=== PATIENT | male | born 1955 | race Caucasian/White ===

== ENCOUNTER 2016-09-20 11:02 | Observation (INO) | payer BC ==
[2016-09-20] MEDS ORDERED: Aspirin Low Dose CHEW TAB* 81 MG PO ONE (11:38)
[2016-09-20 12:37] LABS: Hematocrit 48 % (42-52); Hemoglobin 16.6 g/dl (14.0-18.0); Mean Corpuscular HGB Conc 35 g/dl (31-36); Mean Corpuscular Hemoglobin 32 pg (27-31); Mean Corpuscular Volume 91 fL (80-94); Mean Platelet Volume 8 um3 (7.4-10.4); Red Blood Count 5.27 10^6/ul (4.0-5.4); Red Cell Distribution Width 14 % (10.5-15); White Blood Count 7.6 10^3/ul (3.5-10.8)
--- NOTE | 2016-09-20 12:50 | RAD ---
INDICATION: Chest pain. COMPARISON: Comparison is made with a prior study from September 15, 2014. TECHNIQUE: A portable view of the chest was obtained. FINDINGS: Cardiac and mediastinal contours appear to be within normal limits. The lungs are clear. No pleural effusion is seen. IMPRESSION: NO EVIDENCE FOR ACUTE DISEASE.
[2016-09-20 12:55] LABS: ALT 24 U/L (7-52); Albumin 4.1 g/dL (3.2-5.2); Alkaline Phosphatase 84 U/L (34-104); BUN/Creatinine Ratio 16.7 (8-20); Blood Urea Nitrogen 15 mg/dL (6-24); CO2 Carbon Dioxide 24 mmol/L (22-32); Calcium 9.4 mg/dL (8.6-10.3); Chloride 104 mmol/L (101-111); EGFR African American 111.5 (>60); EGFR Non-African American 86.7 (>60); Globulin 3.7 g/dL (2-4); Glucose 93 mg/dL (70-100); Sodium 133 mmol/L (133-145); Total Protein 7.8 g/dL (6.4-8.9)
[2016-09-20] MEDS ORDERED: Calcium Carbonate CHEW TAB* 500 MG (TUMS) PO PRN (14:54)
--- NOTE | 2016-09-20 18:37 | ED ---
Favian Joy Matthew, scribed for Partha Anthony MD on 09/20/16 at 1200 . HPI Chest Pain - HPI Summary HPI Summary: A 60 y/o male presents with intermittent left sided chest pain since 09/17/16. The patient was walking up a hill on 09/17/16 while sledding with his grand kids when the felt a "twinge" in his chest. The pain comes and goes and he currently described a soreness medial to his left nipple. At that time, the patient had SOB. The pain is unaffected by movement or breathing. He last felt the pain last night while lying on his side in bed. PMHx includes HTN, NO HLD. The patient does not smoke. He had a stress test 6-7 years ago. He takes an aspirin daily. - History of Current Complaint Chief Complaint: EDChestWallPain Time Seen by Provider: 09/20/16 11:38 Hx Obtained From: Patient Onset/Duration: Started Days Ago, Atraumatic, Still Present Timing: Intermittent Initial Severity: Moderate Current Severity: Mild Chest Pain Location: Left Lateral Chest Pain Radiates: No Aggravating Factor(s): Nothing Alleviating Factor(s): Nothing Associated Signs and Symptoms: Positive: Chest Pain, Shortness of Breath - since resolved - Allergy/Home Medications Allergies/Adverse Reactions: Allergies Allergy/AdvReac Type Severity Reaction Status Date / Time No Known Allergies Allergy Verified 05/13/16 07:56 PMH/Surg Hx/FS Hx/Imm Hx Endocrine/Hematology History: Denies: Hx Anticoagulant Therapy, Hx Diabetes, Hx Thyroid Disease Cardiovascular History: Reports: Hx Hypertension - W/MEDS Denies: Hx Congestive Heart Failure, Hx Deep Vein Thrombosis, Hx Myocardial Infarction, Hx Pacemaker/ICD Respiratory History: Denies: Hx Asthma, Hx Chronic Obstructive Pulmonary Disease (COPD), Hx Lung Cancer, Hx Pneumonia, Hx Pulmonary Embolism GI History: Denies: Hx Gall Bladder Disease, Hx Gastrointestinal Bleed, Hx Ulcer, Hx Urosepsis History: Denies: Hx Dialysis, Hx Kidney Stones, Hx Renal Disease Sensory History: Denies: Hx Hearing Aid Neurological History: Denies: Hx Dementia, Hx Migraine, Hx Seizures, Hx Transient Ischemic Attacks (TIA) Psychiatric History: Denies: Hx Anxiety, Hx Depression, Hx Panic Disorder, Hx Schizophrenia, Hx Bipolar Disorder - Surgical History Surgery Procedure, Year, and Place: GALLBLADDER-1999; HERNIA Xs 2 & Infectious Disease History: No Infectious Disease History: Denies: Hx Clostridium Difficile, Hx Hepatitis, Hx Human Immunodeficiency Virus (HIV), Hx of Known/Suspected MRSA, Hx Shingles, Hx Tuberculosis, Hx Known/ Suspected VRE, Hx Known/Suspected VRSA, Traveled Outside the [place] in Last 30 Days - Family History Known Family History: Positive: Cardiac Disease Negative: Hypertension - Social History Alcohol Use: Occasionally Substance Use Type: Reports: None Smoking Status (MU): Never Smoked Tobacco Review of Systems Constitutional: Negative Negative: Fever, Chills Eyes: Negative Negative: Erythema ENT: Negative Negative: Sore Throat Positive: Chest Pain - intermittent - soreness medial to the left nipple currently Positive: Shortness Of Breath - since resolved Gastrointestinal: Negative Negative: Abdominal Pain, Vomiting, Nausea Genitourinary: Negative Negative: dysuria, hematuria Musculoskeletal: Negative Negative: Myalgia, Edema Skin: Negative Negative: Rash Neurological: Negative Psychological: Normal All Other Systems Reviewed And Are Negative: Yes Physical Exam Triage Information Reviewed: Yes Vital Signs On Initial Exam: Initial Vitals Temp Pulse Resp BP Pulse Ox 98.2 F 76 18 158/90 98 09/20/16 11:04 09/20/16 11:04 09/20/16 11:04 09/20/16 11:04 09/20/16 11:04 Vital Signs Reviewed: Yes Appearance: Positive: Well-Appearing, No Pain Distress Skin: Positive: Warm, Dry Head/Face: Positive: Other - Normocephalic; Atraumatic Eyes: Positive: Conjunctiva Clear Neck: Positive: No Lymphadenopathy Respiratory/Lung Sounds: Positive: Breath Sounds Present, Other - Normal Effort. Negative: Rales, Rhonchi, Stridor, Tracheal Deviation, Wheezes Cardiovascular: Positive: RRR, Pulses are Symmetrical in both Upper and Lower Extremities Abdomen Description: Positive: Nontender, Soft, Other: - No Rebound. Negative: Distended, Guarding Bowel Sounds: Positive: Present Musculoskeletal: Positive: Other - The patient reports a mild soreness medial to his left nipple. Negative: Edema Left, Edema Right Neurological: Positive: Alert, Oriented to Person Place, Time Psychiatric: Positive: Affect/Mood Appropriate Diagnostics - Vital Signs Vital Signs Temp Pulse Resp BP Pulse Ox 09/20/16 11:04 98.2 F 76 18 158/90 98 - Laboratory Lab Results: Lab Results 09/20/16 09/20/16 09/20/16 Range/Units 12:10 12:10 12:10 WBC 7.6 (3.5-10.8) 10^3/ul RBC 5.27 (4.0-5.4) 10^6/ul Hgb 16.6 (14.0-18.0) g/dl Hct 48 (42-52) % MCV 91 (80-94) fL MCH 32 H (27-31) pg MCHC 35 (31-36) g/dl RDW 14 (10.5-15) % Plt Count 191 (150-450) 10^3/ul MPV 8 (7.4-10.4) um3 Neut % (Auto) 56.7 (38-83) % Lymph % (Auto) 30.4 (25-47) % [place] % (Auto) 8.8 (1-9) % Eos % (Auto) 2.9 (0-6) % Baso % (Auto) 1.2 (0-2) % Absolute Neuts (auto) 4.3 (1.5-7.7) 10^3/ul Absolute Lymphs (auto) 2.3 (1.0-4.8) 10^3/ul Absolute Monos (auto) 0.7 (0-0.8) 10^3/ul Absolute Eos (auto) 0.2 (0-0.6) 10^3/ul Absolute Basos (auto) 0.1 (0-0.2) 10^3/ul Absolute Nucleated RBC 0.01 10^3/ul Nucleated RBC % 0.1 Sodium 133 (133-145) mmol/L Potassium TNP Chloride 104 (101-111) mmol/L Carbon Dioxide 24 (22-32) mmol/L Anion Gap TNP BUN 15 (6-24) mg/dL Creatinine 0.90 (0.67-1.17) mg/dL Est GFR ( Amer) 111.5 (>60) Est GFR (Non-Af Amer) 86.7 (>60) BUN/Creatinine Ratio 16.7 (8-20) Glucose 93 (70-100) mg/dL Lactic Acid 0.8 (0.5-2.0) mmol/L Calcium 9.4 (8.6-10.3) mg/dL Total Bilirubin 0.80 (0.2-1.0) mg/dL AST TNP ALT 24 (7-52) U/L Alkaline Phosphatase 84 (34-104) U/L Troponin I 0.00 (<0.04) ng/mL Total Protein 7.8 (6.4-8.9) g/dL Albumin 4.1 (3.2-5.2) g/dL Globulin 3.7 (2-4) g/dL Albumin/Globulin Ratio 1.1 (1-3) 09/20/16 Range/Units 13:15 WBC (3.5-10.8) 10^3/ul RBC (4.0-5.4) 10^6/ul Hgb (14.0-18.0) g/dl Hct (42-52) % MCV (80-94) fL MCH (27-31) pg MCHC (31-36) g/dl RDW (10.5-15) % Plt Count (150-450) 10^3/ul MPV (7.4-10.4) um3 Neut % (Auto) (38-83) % Lymph % (Auto) (25-47) % [place] % (Auto) (1-9) % Eos % (Auto) (0-6) % Baso % (Auto) (0-2) % Absolute Neuts (auto) (1.5-7.7) 10^3/ul Absolute Lymphs (auto) (1.0-4.8) 10^3/ul Absolute Monos (auto) (0-0.8) 10^3/ul Absolute Eos (auto) (0-0.6) 10^3/ul Absolute Basos (auto) (0-0.2) 10^3/ul Absolute Nucleated RBC 10^3/ul Nucleated RBC % Sodium (133-145) mmol/L Potassium 4.3 Chloride (101-111) mmol/L Carbon Dioxide (22-32) mmol/L Anion Gap BUN (6-24) mg/dL Creatinine (0.67-1.17) mg/dL Est GFR ( Amer) (>60) Est GFR (Non-Af Amer) (>60) BUN/Creatinine Ratio (8-20) Glucose (70-100) mg/dL Lactic Acid (0.5-2.0) mmol/L Calcium (8.6-10.3) mg/dL Total Bilirubin (0.2-1.0) mg/dL AST 17 ALT (7-52) U/L Alkaline Phosphatase (34-104) U/L Troponin I (<0.04) ng/mL Total Protein (6.4-8.9) g/dL Albumin (3.2-5.2) g/dL Globulin (2-4) g/dL Albumin/Globulin Ratio (1-3) Result Diagrams: 09/20/16 12:10 09/20/16 13:15 Lab Statement: Any lab studies that have been ordered have been reviewed, and results considered in the medical decision making process. - Radiology CXR Xray Interpretation: No Acute Changes - IMPRESSION: NO EVIDENCE FOR ACUTE DISEASE. Radiology Interpretation Completed By: Radiologist - EKG 11:11 Cardiac Rate: NL - 69 bpm EKG Rhythm: Sinus Rhythm EKG Interpretation: No STEMI Chest Pain Course/Dx - Diagnoses Provider Diagnoses: Chest pain, unspecified - Provider Notifications Discussed Care Of Patient With: Dr. Peterson (Hospitalist) -- Notified of patient' s history and will admit the patient into her services. Discharge - Discharge Plan Condition: Stable Disposition: ADMITTED TO [facility] documentation as recorded by the Favian matute Matthew accurately reflects the service I personally performed and the decisions made by , Partha Anthony MD.
[2016-09-20] MEDS ORDERED: Heparin VIAL(*) 5000 UNITS/ML VIAL (FIVE THOUSAND) SUBCUT SCH (21:00)
--- NOTE | 2016-09-20 22:22 | HP ---
HISTORY AND PHYSICAL: DATE OF ADMISSION: 09/20/16 PRIMARY CARE PROVIDER: Dr. Parry. CHIEF COMPLAINT: Chest pain. HISTORY OF PRESENT ILLNESS: Mr. Curtis is a 60-year-old male with a history of hypertension, obesity, who presents to the emergency room with complaints of chest pain. The patient states that he was sled riding with his grandchild this past Monday when he began to have chest pain. The patient states that he and his grandchild slid down the hill and while walking back up with his grandchild on his shoulders, he began to feel left-sided chest discomfort. He states that it was not too bad at that point. He then rode down the hill by himself, and went further down the hill. This was a longer walk back up the hill to get to the top and with this, he had more chest discomfort. The patient has continued to have intermittent chest discomfort over the last few days. He describes this as being a single point in the left side of his chest. He can almost pinpoint with his thumb. The patient states that the discomfort is achy in nature. He states that it comes and goes. He is unable to tell me how long the pain lasts for when it is present. He states that it is variable in duration. He states nothing improves or makes the pain worse. He has had no associated shortness of breath, nausea, or sweats with this discomfort outside when he was walking up the hill, he developed shortness of breath at that point. He has never had anything like this in the past. The patient states that he had a stress test with Dr. Abrams somewhere between 5 to 7 years ago, when he was being worked up for prolonged QT as his daughter was having issues at that time. PAST MEDICAL HISTORY: 1. Hypertension. 2. History of diverticulitis. PAST SURGICAL HISTORY: 1. Cholecystectomy. 2. Bilateral inguinal hernia repairs. MEDICATIONS: 1. Aspirin 81 mg p.o. daily. 2. Losartan 50 mg p.o. daily. 3. Tums 1000 mg p.o. q.4 hours p.r.n. indigestion. ALLERGIES: No known drug allergies. FAMILY HISTORY: Mom is living, she is 83, she has a history of rheumatic fever and heart valve issues related to that. Dad is at age of 84, he had what sounds to be cancer and peripheral arterial disease. SOCIAL HISTORY: The patient is a lifelong nonsmoker. He drinks a couple of beers per week. 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 He is . His , Pamela, is his healthcare proxy. He has 2 children. REVIEW OF SYSTEMS: No fevers, chills, or anorexia. He admits to chest pain as above. No palpitations, no edema, no cough, no shortness of breath. No nausea , vomiting, abdominal pain, constipation, diarrhea, or hematochezia. No hematuria, no dysuria, no focal weakness or sensory loss. No sudden changes in vision. No dysphagia. No joint pains or muscle pains out of the ordinary. No rashes. No anxiety or depression. PHYSICAL EXAMINATION GENERAL: The patient is a well-developed, obese, middle-aged male, sitting in the stretcher, in no acute distress. VITAL SIGNS: Blood pressure 122/83, pulse 75, respirations 22, temp 98.2, and O2 sat is 91% on room air. HEENT: Pupils are equal, they are round, they react to light. Extraocular muscles are intact. Oropharynx is clear. Oral mucosa is moist. There is no submandibular, cervical, or supraclavicular adenopathy. Thyroid is not enlarged. No thyroid nodules are noted. PULMONARY: Lungs are clear to auscultation bilaterally. CARDIAC: Normal S1, S2. Regular rate and rhythm. I do not appreciate any murmurs. There is no lower extremity edema. ABDOMEN: Bowel sounds are present. Abdomen is soft, nontender, and nondistended. MUSCULOSKELETAL: There is no cyanosis or clubbing of the digits. There is full active range of motion of all 4 extremities. NEURO: Cranial nerves II through XII are grossly intact. Sensation is intact to light touch throughout. Strength is 5/5 and symmetric, both upper and lower extremities bilaterally. PSYCH: The patient is alert. He is oriented x3. Affect appears appropriate. SKIN: Warm and dry. There are no rashes. DIAGNOSTIC STUDIES/LAB DATA: Sodium 133, potassium 4.3, chloride 104, CO2 24, BUN 15, creatinine 0.91, glucose 93, lactic acid 0.8, calcium 9.4. Bilirubin 0.8, AST 17, ALT 24, alk phos 84. Troponin 0. Albumin 4.1. WBC 7.6, hemoglobin 16.6, hematocrit 48, platelets 191. EKG revealed normal sinus rhythm without any acute ST-T wave abnormalities. This is unchanged from 2015. Chest x-ray: No evidence for acute disease. ASSESSMENT AND PLAN: Mr. Curtis is a 60-year-old male with a history of hypertension and obesity, who presents to the emergency room with complaints of chest pain that developed initially while walking up hill while sled riding with his family and has persisted over the last 3 days. 1. Chest pain. The patient's story is concerning for the onset of the chest discomfort; however, the fact that this appears pinpoint seems somewhat atypical for cardiac pain. Given the patient's onset of the pain as well as history of obesity, hypertension, and age, we will go ahead and admit the patient to rule out myocardial infarction with serial troponins and EKGs. I doubt that the patient is actively having an acute myocardial infarction. He will undergo an exercise nuclear stress test tomorrow. If negative, the patient will be discharged home. If positive, Cardiology evaluation will be requested. The patient will be maintained on his usual dose of baby aspirin. 2. Hypertension. The patient's blood pressure is under good control. He will be maintained on his usual dose of losartan. 3. DVT prophylaxis. According to the Adult Thrombosis Prophylaxis Risk Factor Assessment Guide, the patient has a total risk factor score of 2 making him moderate risk. He will be placed on heparin 5000 units subcutaneous q.12 hours. 4. Code status is full and again, the patient indicates that his is his healthcare proxy. TIME SPENT: Sixty-five minutes was spent admitting this patient, of which greater than half was spent [id number] with the patient and his convincing him to stay in the hospital for evaluation and performing a physical exam. CC: Dr. Parry* [id number]/[facility] #: [id number] LEANDRO
[2016-09-21] MEDS ORDERED: Aspirin EC Low Dose* 81 MG TAB.EC PO SCH (09:00)
[2016-09-21] MEDS ORDERED: Losartan TAB* 25 MG PO SCH (09:00)
--- NOTE | 2016-09-21 12:19 | RAD ---
Edited for charges. INDICATION: Chest pain, hypertension, obesity. COMPARISON: No relevant prior exams available on the [facility] PACS. TECHNIQUE: 10.670 mCi of Tc-99m Myoview were administered IV. SPECT images of the heart were obtained. Later on the same day, under the direction of Dr. Briones, an exercise stress test was performed. The patient achieved a peak heart rate of 141 bpm, 87 % of the age- predicted maximum. Subsequently, the patient was given an IV injection of 25.710 mCi Tc- 99m Myoview. SPECT images of the heart were obtained and a gated wall motion study was performed. FINDINGS: Gated wall motion images were obtained at stress and demonstrate wall motion to be within normal limits. Calculated left ventricular ejection fraction is 67 % at stress. Estimated LEFT ventricular end diastolic volume is 112 mL. TID 0.91. Diaphragmatic attenuation noted on the nonattenuation corrected series. Fixed thinning at the apex noted. No stress-induced reversible perfusion defect evident to indicate ischemia. IMPRESSION: 1. No evidence for stress-induced ischemia. 2. Nonspecific fixed thinning/decreased radiopharmaceutical accumulation at the cardiac apex. A small infarct is not excluded. 3. Normal LEFT ventricular wall motion and estimated ejection fraction. ASSESSMENT: Low risk. Based on imaging criteria from ACC/AHA 2002 Guideline Update for the Management of Patients With Chronic Stable Angina Table 23. Noninvasive Risk Stratification. MTDD
--- NOTE | 2016-09-21 13:26 | PN ---
Subjective Date of Service: 09/21/16 Interval History: Pt is feeling well. He is still getting sharp twinges of pain from time to time. He is anxious to go home. Objective Active Medications: Aspirin (Aspirin Ec Low Dose*) 81 mg PO DAILY [facility] Calcium Carbonate (Tums*) 1,000 mg PO Q6H PRN PRN Reason: INDIGESTION Heparin Sodium (Porcine) (Heparin Vial(*)) 5,000 units SUBCUT Q12HR [facility] Last Admin: 09/20/16 21:43 Dose: 5,000 units Losartan Potassium (Cozaar Tab*) 50 mg PO DAILY [facility] Vital Signs 09/20/16 09/20/16 09/20/16 14:00 14:30 15:00 Temperature Pulse Rate 76 71 71 Respiratory 19 14 17 Rate Blood Pressure 140/98 138/86 142/83 (mmHg) O2 Sat by Pulse 93 97 95 Oximetry 09/20/16 09/20/16 09/21/16 16:13 20:46 00:40 Temperature 97.8 F 98.1 F 98.1 F Pulse Rate 66 72 65 Respiratory 18 20 16 Rate Blood Pressure 149/93 140/86 117/69 (mmHg) O2 Sat by Pulse 97 91 93 Oximetry 09/21/16 09/21/16 04:41 07:31 Temperature 98.3 F Pulse Rate 69 Respiratory 16 16 Rate Blood Pressure 120/70 (mmHg) O2 Sat by Pulse 92 Oximetry Oxygen Devices in Use Now: None Appearance: Middle aged male standing in the room, NAD Eyes: No Scleral Icterus Ears/Nose/Mouth/Throat: Mucous Membranes Moist Respiratory: Symmetrical Chest Expansion and Respiratory Effort, Clear to Auscultation Cardiovascular: NL Sounds; No Murmurs; No JVD, RRR, No Edema Abdominal: NL Sounds; No Tenderness; No Distention Extremities: No Clubbing, Cyanosis Skin: No Rash or Ulcers, No Nodules or Sclerosis Neurological: Alert and Oriented x 3 Result Diagrams: 09/20/16 12:10 09/20/16 13:15 Additional Lab and Data: Lab Results 09/20/16 09/20/16 09/20/16 Range/Units 12:10 12:10 12:10 WBC 7.6 (3.5-10.8) 10^3/ul RBC 5.27 (4.0-5.4) 10^6/ul Hgb 16.6 (14.0-18.0) g/dl Hct 48 (42-52) % MCV 91 (80-94) fL MCH 32 H (27-31) pg MCHC 35 (31-36) g/dl RDW 14 (10.5-15) % Plt Count 191 (150-450) 10^3/ul MPV 8 (7.4-10.4) um3 Neut % (Auto) 56.7 (38-83) % Lymph % (Auto) 30.4 (25-47) % [place] % (Auto) 8.8 (1-9) % Eos % (Auto) 2.9 (0-6) % Baso % (Auto) 1.2 (0-2) % Absolute Neuts (auto) 4.3 (1.5-7.7) 10^3/ul Absolute Lymphs (auto) 2.3 (1.0-4.8) 10^3/ul Absolute Monos (auto) 0.7 (0-0.8) 10^3/ul Absolute Eos (auto) 0.2 (0-0.6) 10^3/ul Absolute Basos (auto) 0.1 (0-0.2) 10^3/ul Absolute Nucleated RBC 0.01 10^3/ul Nucleated RBC % 0.1 Sodium 133 (133-145) mmol/L Potassium TNP Chloride 104 (101-111) mmol/L Carbon Dioxide 24 (22-32) mmol/L Anion Gap TNP BUN 15 (6-24) mg/dL Creatinine 0.90 (0.67-1.17) mg/dL Est GFR ( Amer) 111.5 (>60) Est GFR (Non-Af Amer) 86.7 (>60) BUN/Creatinine Ratio 16.7 (8-20) Glucose 93 (70-100) mg/dL Lactic Acid 0.8 (0.5-2.0) mmol/L Calcium 9.4 (8.6-10.3) mg/dL Total Bilirubin 0.80 (0.2-1.0) mg/dL AST TNP ALT 24 (7-52) U/L Alkaline Phosphatase 84 (34-104) U/L Troponin I 0.00 (<0.04) ng/mL Total Protein 7.8 (6.4-8.9) g/dL Albumin 4.1 (3.2-5.2) g/dL Globulin 3.7 (2-4) g/dL Albumin/Globulin Ratio 1.1 (1-3) 09/20/16 Range/Units 13:15 WBC (3.5-10.8) 10^3/ul RBC (4.0-5.4) 10^6/ul Hgb (14.0-18.0) g/dl Hct (42-52) % MCV (80-94) fL MCH (27-31) pg MCHC (31-36) g/dl RDW (10.5-15) % Plt Count (150-450) 10^3/ul MPV (7.4-10.4) um3 Neut % (Auto) (38-83) % Lymph % (Auto) (25-47) % [place] % (Auto) (1-9) % Eos % (Auto) (0-6) % Baso % (Auto) (0-2) % Absolute Neuts (auto) (1.5-7.7) 10^3/ul Absolute Lymphs (auto) (1.0-4.8) 10^3/ul Absolute Monos (auto) (0-0.8) 10^3/ul Absolute Eos (auto) (0-0.6) 10^3/ul Absolute Basos (auto) (0-0.2) 10^3/ul Absolute Nucleated RBC 10^3/ul Nucleated RBC % Sodium (133-145) mmol/L Potassium 4.3 Chloride (101-111) mmol/L Carbon Dioxide (22-32) mmol/L Anion Gap BUN (6-24) mg/dL Creatinine (0.67-1.17) mg/dL Est GFR ( Amer) (>60) Est GFR (Non-Af Amer) (>60) BUN/Creatinine Ratio (8-20) Glucose (70-100) mg/dL Lactic Acid (0.5-2.0) mmol/L Calcium (8.6-10.3) mg/dL Total Bilirubin (0.2-1.0) mg/dL AST 17 ALT (7-52) U/L Alkaline Phosphatase (34-104) U/L Troponin I (<0.04) ng/mL Total Protein (6.4-8.9) g/dL Albumin (3.2-5.2) g/dL Globulin (2-4) g/dL Albumin/Globulin Ratio (1-3) Assess/Plan/Problems-Billing Mr Saunders is a 60 yo M who has a h/o HTN and obesity who presented to the ER with c/o chest pain that developed while walking up a hill to sled ride. - Patient Problems (1) Chest pain Current Visit: Yes Status: Acute Code(s): R07.9 - CHEST PAIN, UNSPECIFIED SNOMED Code(s): 86716287 Comment: The patient was ruled out for ID and his stress test was negative for ischemia. He will continue on his usual home medication regimen. Follow up with Dr. Abrams as needed. (2) HTN (hypertension) Current Visit: Yes Status: Acute Code(s): I10 - ESSENTIAL (PRIMARY) HYPERTENSION SNOMED Code(s): 07115978 Comment: BP is under good control. Continue losartan 50mg daily. (3) DVT prophylaxis Current Visit: Yes Status: Acute Code(s): ACA2342 - SNOMED Code(s): 431424650 Comment: SQ heparin (4) Full code status Current Visit: Yes Status: Acute Code(s): Z78.9 - OTHER SPECIFIED HEALTH STATUS SNOMED Code(s): 418765773
[2016-09-21 14:15] VITALS: BP 124/83
--- NOTE | 2016-09-22 05:12 | DS ---
DISCHARGE SUMMARY: DATE OF ADMISSION: 09/20/16 DATE OF DISCHARGE: 09/21/16 PRIMARY CARE PROVIDER: Bradford Parry MD PRINCIPAL DIAGNOSIS: Noncardiac chest pain. SECONDARY DIAGNOSIS: Hypertension. DISCHARGE MEDICATIONS: 1. Aspirin 81 mg p.o. daily. 2. Losartan 50 mg p.o. daily. 3. Tums 1000 mg p.o. q.4 hours p.r.n. indigestion. HOSPITAL COURSE: Mr. Curtis is a 60-year-old male who developed chest pain while walking up a hill after riding down it on a sled with his grandchild. The patient noticed some mild chest discomfort the first time up the hill, but more the second time he walked up the hill. He has had off and on chest discomfort since that time. The onset of chest pain was this past Monday. However, while the patient's story is concerning, he describes the pain is to being pinpoint. Given the patient's history of obesity, age, and hypertension; the decision was made to admit him and rule out an acute coronary syndrome. The patient had 3 negative troponins and an EKG without any acute ST-T wave abnormalities. The patient underwent an exercise nuclear stress test on the day of discharge that did not reveal any evidence of infarct or ischemia. At this point, it was felt the patient is stable for discharge home. The patient has been instructed to continue his usual home medication regimen. He will follow up with Dr. Parry in the next 1 to 2 weeks. Activity level is as tolerated. The patient has been instructed to return to the emergency room if he has any concerning chest pain or any other concerning symptoms. FOLLOWUP CONCERNS: The patient is being discharged home today, 09/21/16. The patient is to follow up with Dr. Parry on 09/28/16 at 9:15 a.m. ACTIVITY LEVEL: As tolerated. DIET: Low fat. CONDITION ON DISCHARGE: Stable. TIME SPENT: Twenty-five minutes was spent discharging this patient. CC: Dr. Parry* [id number]/[facility] #: [id number] MTDD
== END 2016-09-21 14:30 | disposition home or self-care (01) ==
LOC: ED 11:02 → MEDTELE 13:43
PROVIDERS: ADMIT Hospitalist; ATTEND Hospitalist
DX: R07.89 Other chest pain (principal); I10 Essential (primary) hypertension; E66.9 Obesity, unspecified; R06.02 Shortness of breath; Z79.82 Long term (current) use of aspirin; Z79.899 Other long term (current) drug therapy
CPT/HCPCS: 36415; 71010; 78452; 80053; 83605; 84484; 85025; 93005; 93017; 96372; 99284; A9270-GY; A9502; G0378; J1644

== ENCOUNTER 2017-01-22 07:56 | Emergency (ER) | payer BC ==
[2017-01-22] MEDS ORDERED: Ondansetron INJ* 2 MG/ML VIAL IV ONE (08:42)
[2017-01-22 10:04] LABS: Hematocrit 49 % (42-52); Hemoglobin 16.4 g/dl (14.0-18.0); Mean Corpuscular HGB Conc 34 g/dl (31-36); Mean Corpuscular Hemoglobin 32 pg (27-31); Mean Corpuscular Volume 95 fL (80-94); Mean Platelet Volume 8 um3 (7.4-10.4); Red Blood Count 5.12 10^6/ul (4.0-5.4); Red Cell Distribution Width 13 % (10.5-15); White Blood Count 7.5 10^3/ul (3.5-10.8)
[2017-01-22 10:22] LABS: Albumin 4.2 g/dL (3.2-5.2); C Reactive Protein 2.85 mg/L (< 5.00); Calcium 9.4 mg/dL (8.6-10.3); EGFR African American 109.7 (>60); EGFR Non-African American 85.3 (>60); Globulin 3.1 g/dL (2-4); Magnesium 2.3 mg/dL (1.9-2.7); Potassium 3.7 mmol/L (3.5-5.0); Total Bilirubin 1.2 mg/dL (0.2-1.0); Total Protein 7.3 g/dL (6.4-8.9)
--- NOTE | 2017-01-22 10:46 | ED ---
Abdominal Pain/Male - HPI Summary HPI Summary: Patient presents with CC of LLQ pain, distention, nausea and feeling of fullness x 2 days. Hx of diverticulitis and took Cipro he had at home from a previous episode with no improvement. He has also tried to be NPO for 2 days. Denies vomiting. Denies constipation and diarrhea. Denies fever. Endorses back pain, but denies urinary symptoms. Pain and discomfort rated a 5/10, constant and pain does not radiate. Denies weakness, dizziness or other complaints at this time. GI doctor is Dr. Soares and has appt next month. Denies chest pain, SOB. - History of Current Complaint Chief Complaint: EDAbdPain Stated Complaint: ABD PAIN Time Seen by Provider: 01/22/17 08:28 Hx Obtained From: Patient Onset/Duration: Sudden Onset Timing: Constant Severity Initially: Moderate Severity Currently: Moderate Pain Intensity: 5 Pain Scale Used: 0-10 Numeric Location: Discrete At: LLQ Radiates: No Character: Dull, Cramping Aggravating Factor(s): Food Alleviating Factor(s): NPO Associated Signs And Symptoms: Positive: Decreased Appetite - Risk Factors Testicular Torsion: Negative Cardiac Risk Factors: Negative - Allergies/Home Medications Allergies/Adverse Reactions: Allergies Allergy/AdvReac Type Severity Reaction Status Date / Time No Known Allergies Allergy Verified 01/22/17 10:23 PMH/Surg Hx/FS Hx/Imm Hx Previously Healthy: Yes Endocrine/Hematology History: Denies: Hx Anticoagulant Therapy, Hx Diabetes, Hx Thyroid Disease Cardiovascular History: Reports: Hx Angina, Hx Hypertension - W/MEDS Denies: Hx Congestive Heart Failure, Hx Deep Vein Thrombosis, Hx Myocardial Infarction, Hx Pacemaker/ICD Respiratory History: Denies: Hx Asthma, Hx Chronic Obstructive Pulmonary Disease (COPD), Hx Lung Cancer, Hx Pneumonia, Hx Pulmonary Embolism GI History: Reports: Hx Diverticulosis - diverticulitis Denies: Hx Gall Bladder Disease, Hx Gastrointestinal Bleed, Hx Ulcer, Hx Urosepsis History: Denies: Hx Dialysis, Hx Kidney Stones, Hx Renal Disease Musculoskeletal History: Reports: Hx Orthopedic Injury - Fx clavicle, shoulder dislocation, hand injury Sensory History: Denies: Hx Hearing Aid Neurological History: Reports: Hx Headaches, Other Neuro Impairments/Disorders - HX idiopathic neuropathy r/t sciatica; head injury with LOC Denies: Hx Dementia, Hx Migraine, Hx Seizures, Hx Transient Ischemic Attacks (TIA) Psychiatric History: Denies: Hx Anxiety, Hx Depression, Hx Panic Disorder, Hx Schizophrenia, Hx Bipolar Disorder - Surgical History Surgery Procedure, Year, and Place: GALLBLADDER-1999; HERNIA Xs 2 & Hx Anesthesia Reactions: No - Immunization History Date of Tetanus Vaccine: up to date Date of Influenza Vaccine: 2016 Hx Pertussis Vaccination: No Immunizations Up to Date: Unable to Obtain/Confirm Infectious Disease History: No Infectious Disease History: Denies: Hx Clostridium Difficile, Hx Hepatitis, Hx Human Immunodeficiency Virus (HIV), Hx of Known/Suspected MRSA, Hx Shingles, Hx Tuberculosis, Hx Known/ Suspected VRE, Hx Known/Suspected VRSA, Traveled Outside the [place] in Last 30 Days - Family History Known Family History: Positive: Cardiac Disease Negative: Hypertension - Social History Occupation: Employed Full-time Lives: With Family Alcohol Use: Occasionally Alcohol Amount: 2/week Hx Substance Use: No Substance Use Type: Reports: None Hx Tobacco Use: No Smoking Status (MU): Never Smoked Tobacco Review of Systems Positive: Skin Diaphoresis Eyes: Negative Cardiovascular: Negative Respiratory: Negative Positive: Abdominal Pain, Nausea Positive: no symptoms reported, see HPI Musculoskeletal: Negative Neurological: Negative Psychological: Normal All Other Systems Reviewed And Are Negative: Yes Physical Exam Triage Information Reviewed: Yes Vital Signs On Initial Exam: Initial Vitals Temp Pulse Resp BP Pulse Ox 96.9 F 73 16 145/103 98 01/22/17 07:57 01/22/17 07:57 01/22/17 07:57 01/22/17 07:57 01/22/17 07:57 Vital Signs Reviewed: Yes Appearance: Positive: Well-Appearing, Well-Nourished Skin: Positive: Warm, Skin Color Reflects Adequate Perfusion Eyes: Positive: EOMI, KAUSHIK, Conjunctiva Clear Neck: Positive: Supple, No Lymphadenopathy Respiratory/Lung Sounds: Positive: Clear to Auscultation, Breath Sounds Present Cardiovascular: Positive: Normal, RRR, Pulses are Symmetrical in both Upper and Lower Extremities Abdomen Description: Positive: Distended, Other: - LLQ tenderness on palpation Musculoskeletal: Positive: Normal, Strength/ROM Intact Neurological: Positive: Sensory/Motor Intact, Alert, Oriented to Person Place, Time Psychiatric: Positive: Normal AVPU Assessment: Alert - [place] Coma Scale Best Eye Response: 4 - Spontaneous Best Motor Response: 6 - Obeys Commands Best Verbal Response: 5 - Oriented Coma Scale Total: 15 Diagnostics - Vital Signs Vital Signs Temp Pulse Resp BP Pulse Ox 01/22/17 09:58 97.6 F 17 01/22/17 09:52 59 94 01/22/17 09:49 140/87 01/22/17 07:57 96.9 F 73 16 145/103 98 - Laboratory Lab Results: Lab Results 01/22/17 01/22/17 01/22/17 Range/Units 09:55 09:55 09:55 WBC 7.5 (3.5-10.8) 10^3/ul RBC 5.12 (4.0-5.4) 10^6/ul Hgb 16.4 (14.0-18.0) g/dl Hct 49 (42-52) % MCV 95 H (80-94) fL MCH 32 H (27-31) pg MCHC 34 (31-36) g/dl RDW 13 (10.5-15) % Plt Count 198 (150-450) 10^3/ul MPV 8 (7.4-10.4) um3 Neut % (Auto) 59.4 (38-83) % Lymph % (Auto) 26.6 (25-47) % [place] % (Auto) 9.4 H (1-9) % Eos % (Auto) 3.6 (0-6) % Baso % (Auto) 1.0 (0-2) % Absolute Neuts (auto) 4.4 (1.5-7.7) 10^3/ul Absolute Lymphs (auto) 2.0 (1.0-4.8) 10^3/ul Absolute Monos (auto) 0.7 (0-0.8) 10^3/ul Absolute Eos (auto) 0.3 (0-0.6) 10^3/ul Absolute Basos (auto) 0.1 (0-0.2) 10^3/ul Absolute Nucleated RBC 0.01 10^3/ul Nucleated RBC % 0.1 Sodium 134 (133-145) mmol/L Potassium 3.7 (3.5-5.0) mmol/L Chloride 103 (101-111) mmol/L Carbon Dioxide 25 (22-32) mmol/L Anion Gap 6 (2-11) mmol/L BUN 10 (6-24) mg/dL Creatinine 0.91 (0.67-1.17) mg/dL Est GFR ( Amer) 109.7 (>60) Est GFR (Non-Af Amer) 85.3 (>60) BUN/Creatinine Ratio 11.0 (8-20) Glucose 109 H (70-100) mg/dL Lactic Acid 0.8 (0.5-2.0) mmol/L Calcium 9.4 (8.6-10.3) mg/dL Magnesium 2.3 (1.9-2.7) mg/dL Total Bilirubin 1.20 H (0.2-1.0) mg/dL AST 13 (13-39) U/L ALT 13 (7-52) U/L Alkaline Phosphatase 80 (34-104) U/L C-Reactive Protein 2.85 (< 5.00) mg/L Total Protein 7.3 (6.4-8.9) g/dL Albumin 4.2 (3.2-5.2) g/dL Globulin 3.1 (2-4) g/dL Albumin/Globulin Ratio 1.4 (1-3) Lipase 19 (11.0-82.0) U/L Result Diagrams: 01/22/17 09:55 01/22/17 09:55 Lab Statement: Any lab studies that have been ordered have been reviewed, and results considered in the medical decision making process. Abdominal Pain Fem Course/Dx - Course Course Of Treatment: Patients labs WNL. CT abd.pelvis WNL. Patient given PO zofran RX. Encouraged to follow up with GI - call tomorrow morning. No clear answer for abdominal pain. No hernia, hepatomegaly, mcburneys point tenderness and bailey's negative. Patient made aware of plan and is OK with discharge. Patient will follow up with PCP and return if symptoms become worse. Return precautions given, medications and side effects reviewed. Patient denies constipation, urinary symptoms or obstructive symptoms other than mild nausea. However, he has made himself NPO and also taking cipro x 2 days which could be a cause of his discomfort. - Diagnoses Differential Diagnosis/HQI/PQRI: Bowel Obstruction, Constipation Provider Diagnoses: Abdominal pain Discharge - Discharge Plan Condition: Stable Disposition: HOME Prescriptions: Ondansetron ODT TAB* [Zofran 4 MG Odt TAB*] 4 mg PO Q6H PRN #12 tab.odt MDD 4 PRN Reason: Nausea Patient Education Materials: Acute Abdominal Pain (ED), Gas and Bloating (ED) Referrals: Bradford Parry MD [Primary Care Provider] - Additional Instructions: Follow up with Dr. Soares Call office tomorrow If symptoms become worse, return to the ED immediately
[2017-01-22] MEDS ORDERED: Iohexol 300* (CONTRAST) 10 ML SDV IV ONE (10:48)
--- NOTE | 2017-01-22 11:22 | RAD ---
INDICATION: Left lower quadrant abdominal pain. COMPARISON: Comparison is made with a prior CT of the abdomen and pelvis from May 13, 2016. TECHNIQUE: A CT scan of the abdomen and pelvis was performed with intravenous and oral contrast following intravenous injection of 150 ml of Omnipaque 300 nonionic contrast. Contiguous axial sections were obtained from the lung bases through the symphysis pubis. Images were reconstructed in the coronal and sagittal planes. FINDINGS: The lung bases are clear. No pleural effusion is present. The liver is normal in size. There are couple small hypodense lesions in the posterior segment of the right hepatic lobe measuring up to 6 mm in size which are too small to characterize by CT although likely incidental. The liver is decreased in attenuation consistent with fatty infiltration. The patient is status post cholecystectomy. The spleen is mildly enlarged. The pancreas appears to be within normal limits. The kidneys and adrenal glands are normal in size. No hydronephrosis is seen. There are several right renal cysts measuring up to 2.4 cm in size. The aorta is normal in caliber with mild calcific plaque present. No significant enlarged retroperitoneal lymph nodes are seen. The stomach, small and large bowel appear nondistended. The appendix is not visualized although no inflammatory changes are seen in the right lower quadrant. There is mild to moderate descending and sigmoid diverticulosis without evidence for diverticulitis. There is a small periumbilical hernia containing fat. No free intraperitoneal air or fluid is seen. No significant focal osseous abnormality is seen. IMPRESSION: 1. NO EVIDENCE FOR ACUTE FINDING OR CAUSE FOR THE PATIENT'S ABDOMINAL PAIN IS SEEN. 2. HEPATIC STEATOSIS. 3. MILD SPLENOMEGALY, UNCHANGED. 4. STATUS POST CHOLECYSTECTOMY.
[2017-01-22 11:43] VITALS: BP 141/87
[2017-01-22] MEDS ORDERED: Ondansetron INJ* 2 MG/ML VIAL ONE (12:08)
== END 2017-01-22 12:18 | disposition home or self-care (01) ==
LOC: ED 07:56
DX: R10.32 Left lower quadrant pain (principal); R11.0 Nausea
CPT/HCPCS: 36415; 74177; 80053; 83605; 83690; 83735; 85025; 86140; 96374; 96375; 99282; J2405; Q9967

== ENCOUNTER 2023-08-08 05:39 | Observation (INO) ==
[2023-08-08] MEDS ORDERED: Famotidine IV 10 MG/ML 2 ml VIAL (20 mg) IV ONE (06:00)
[2023-08-08] MEDS ORDERED: Lactated Ringers 1000 ml BAG 1,000 ML IV SCH ×2 (06:00→09:00)
[2023-08-08] MEDS ORDERED: Buffered Lidocaine 1% SYRIN 1 ml INTRADERM ONE (06:00)
[2023-08-08] MEDS ORDERED: Tranexamic Acid 1 GM/100ML BAG 2,000 MG/200 ML BAG IV ONE (06:19)
[2023-08-08] MEDS ORDERED: ceFAZolin 2 GM PREMIX 2 GM/50 ML BAG ONE (06:19)
[2023-08-08] MEDS ORDERED: Buffered Lidocaine 1% SYRIN 1 ml ONE (06:20)
[2023-08-08] MEDS ORDERED: Famotidine IV 10 MG/ML 2 ml VIAL (20 mg) ONE (06:20)
[2023-08-08 06:30] LABS: Rapid COVID-19 Molecular Undetected (Undetected)
[2023-08-08] MEDS ORDERED: ROPIVACAINE 5 MG/ML 30 ML BTL (0.5%) ONE ×2 (06:52→07:04)
[2023-08-08] MEDS ORDERED: Rocuronium 50 mg VIAL 10 mg/ml 5 ml VIAL (50 mg) ONE (07:03)
[2023-08-08] MEDS ORDERED: Ondansetron 4 mg VIAL 2 MG/ML 2 ml VIAL ONE (07:03)
[2023-08-08] MEDS ORDERED: Lidocaine 2% PF 5 ML VIAL ONE (07:03)
[2023-08-08] MEDS ORDERED: Propofol 10 MG/ML 20 ML BTL ONE ×3 (07:03→09:24)
[2023-08-08] MEDS ORDERED: Dexamethasone IV 4 MG/ML VIAL 1 ml VIAL ONE (07:03)
[2023-08-08] MEDS ORDERED: Midazolam 5 mg/5 ml VIAL 1 mg/ml 5 ml VIAL (5 mg) ONE (07:04)
[2023-08-08] MEDS ORDERED: fentaNYL 100 mcg/2 ml 50 MCG/ML VIAL ONE (07:04)
[2023-08-08] MEDS ORDERED: ceFAZolin 1 GM in Dextrose 1 GM/50 ML BAG ONE (07:21)
[2023-08-08] MEDS ORDERED: Glycopyrrolate IV 0.2 MG/ML 1 ML VIAL ONE (08:06)
[2023-08-08] MEDS ORDERED: Acetaminophen IV 1 GM/100ML 1,000 MG/100 ML BAG IV ONE (08:24)
[2023-08-08] MEDS ORDERED: Ondansetron ODT 4 mg TAB 4 MG TAB PO PRN (08:31)
[2023-08-08] MEDS ORDERED: Lactulose 30 ml UDC PO PRN (08:31)
[2023-08-08] MEDS ORDERED: Ondansetron 4 mg VIAL 2 MG/ML 2 ml VIAL IV PRN (08:31)
[2023-08-08] MEDS ORDERED: Morphine 2 MG/ML SYRINGE IV PRN (08:31)
[2023-08-08] MEDS ORDERED: Magnesium Hydroxide LIQ 30 ML UDC PO PRN (08:31)
[2023-08-08] MEDS ORDERED: Vitamin THERAPEUTIC TAB PO SCH (09:00)
[2023-08-08] MEDS ORDERED: Magnesium Hydroxide LIQ 30 ML UDC PO SCH (09:00)
[2023-08-08] MEDS ORDERED: Propofol 1,000 MG/100 ML BTL ONE (09:14)
[2023-08-08] MEDS ORDERED: HYDROmorphone 1 MG/1 ML SYRINGE IV PRN (09:37)
[2023-08-08] MEDS ORDERED: Naloxone 0.4 mg VIAL 0.4 mg/ml 1 ml VIAL IV PRN (09:37)
[2023-08-08] MEDS ORDERED: fentaNYL 100 mcg/2 ml 50 MCG/ML VIAL IV PRN (09:37)
[2023-08-08] MEDS ORDERED: ceFAZolin 1 GM ADVAN 1 GM in NS 0.9% 50 ML 50 ML IVPB SCH (16:00)
[2023-08-08 16:38] VITALS: BP 142/78
[2023-08-08] MEDS ORDERED: Omeprazole 20 mg CAP (NF) PO SCH (21:00)
== END 2023-08-08 18:11 | disposition home or self-care (01) ==
LOC: OR 05:39 → SSU 05:39
PROVIDERS: ADMIT Orthopaedic Surgery Adult Reconstructive Orthopaedic Surgery; ATTEND Orthopaedic Surgery Adult Reconstructive Orthopaedic Surgery